=== PATIENT | female | born 1955 | race Caucasian/White ===

== ENCOUNTER 2025-04-05 13:04 | Emergency (ER) | payer OTHER ==
[~2025-04-05] VITALS: Ht 165.1 cm; Wt 95.3 kg
--- NOTE | 2025-04-05 13:11 | NUR ---
PAGED EKG OVER RADIO, STAT FOR CHEST PAIN
--- NOTE | 2025-04-05 13:17 | EKG ---
[facility] Test Date: 2025-04-05 Test Time: 13:13:49 Pat Name: JAVIER OSULLIVAN Department: ED Room: Gender: F [employer]: [id number] : 1955 Requested By: GENESIS BLANCA Order Number: [id number] Reading MD: Jaspreet Villa Measurements Intervals [place] Rate: 84 P: 44 [place]: 151 QRS: 13 QRSD: 122 T: 37 QT: 379 QTc: 448 Interpretive Statements Sinus rhythm Right bundle branch block Compared to ECG 04/21/2024 17:31:30 Atrial premature complex(es) no longer present Electronically Signed On 04-05-2025 19:45:53 CDT by Jaspreet Villa Please click the below link to view image of tracing.
[2025-04-05] MEDS: NITROGLYCERIN 0.4 MG SL TAB SL PRN (13:28)
[2025-04-05] MEDS: LACTATED RINGERS 1000ML 1,000 ML IV ONE (13:29)
[2025-04-05 13:33] LABS: BASOPHILS # (AUTO) 0.04 K/uL (0.00-0.20); BASOPHILS % (AUTO) 0.4 % (0.0-5.0); EOSINOPHILS # (AUTO) 0.11 K/uL (0.00-0.70); EOSINOPHILS % (AUTO) 1.1 % (0.0-8.0); IMMATURE GRANULOCYTE ABSOLUTE 0.04 K/uL (0-1); LYMPHOCYTES # (AUTO) 2.1 K/uL (1.0-4.8); LYMPHOCYTES % (AUTO) 21.4 % (21.0-51.0); MEAN CORPUSCULAR HEMOGLOBIN 31.3 pg (27.0-33.0); MEAN CORPUSCULAR HGB CONC 33.6 g/dL (32.0-36.0); MEAN CORPUSCULAR VOLUME 93.3 fL (79-99); MONOCYTES # (AUTO) 0.7 K/uL (0.1-1.0); MONOCYTES % (AUTO) 6.7 % (3.0-13.0); NEUTROPHILS # (AUTO) 6.8 K/uL (1.8-7.7); PLATELET COUNT (AUTO) 212 K/uL (130-400); RED BLOOD CELL COUNT(AUTO) 4.18 MIL/uL (4.00-5.50); RED CELL DISTRIBUTION WIDTH 12.3 % (11.0-15.5); WHITE BLOOD COUNT (AUTO) 9.7 K/uL (4.8-10.8)
--- NOTE | 2025-04-05 13:35 | ERN ---
General Chief Complaint: Chest Pain Stated Complaint: CHEST TIGHTNESS AN HOUR Time Seen by MD: 13:05 Source: patient History of Present Illness Initial Comments Patient is a 69-year-old female coming in to be evaluated for chest pressure. Per patient she states that she has been having chest pressure since 12:00 p.m.. Allergies: Coded Allergies: Cephalosporins (Unverified Allergy, Unknown, ITCHING, 04/21/24) Sulfa (Sulfonamide Antibiotics) (Unverified Allergy, Unknown, HIVES, 04/21/24) Past Medical History Past Medical History: High Cholesterol Medical History Other: CHRONIC BACK PAIN Past Surgical History: Other Surgical History Other: BACK SX ROS Dictation CONSTITUTIONAL: No chills, no fever, no weakness, no diaphoresis, no malaise. HEAD/FACE: No signs of trauma. EENT: No eye pain, no blurred vision, no tearing, no double vision, no ear pain, no ear discharge, no nose pain, no nasal congestion, no throat pain, no throat swelling, no mouth pain. RESPIRATORY: No cough, no orthopnea, no SOB, no stridor, no wheezing. CARDIOVASCULAR: No chest pain, no edema, no palpitations, no syncope. GASTROINTESTINAL/ABDOMINAL: No abdominal pain, no constipation, no diarrhea, no nausea, no vomiting. GENITOURINARY: No abnormal discharge, no dysuria, no frequent urination, no hematuria. No complaints of pain in the genitals. MUSCULOSKELETAL: No back pain, no gout, no joint pain, no joint swelling, no muscle pain, no muscle stiffness, no neck pain. INTEGUMENTARY: No change in color, no change in hair/nails, no dryness, no lesion, no lumps, no rash. NEUROLOGICAL/PSYCH: No anxiety, not depressed, no emotional problem, no headache, no numbness, no pre-existing deficit, no history of seizures, no tremors, no weakness. HEMATOLOGIC/LYMPHATIC: Not anemic, no history of blood clots, no apparent bleeding, no bruising, glands not swollen. All Systems Negative, Except as Noted. Physical Exam Physical Exam Dictation VITAL SIGNS: Reviewed. GENERAL APPEARANCE: Alert, oriented x3, no acute distress, obese. HEAD AND FACE: Non-traumatic. EYES: PERRL, pink conjunctivas, eyelid no trauma, anterior chamber clear. EARS: Pinnas intact and no signs of trauma or erythema. Ear canals clear and no discharge. TMs no erythema. NOSE: No discharge, no bleeding. OROPHARYNX: Mouth normal, teeth no caries, tongue pink. Pharynx clear, no laura thema. Tonsils no exudates, no abscesses noted. Mucous membrane moist. NECK: Supple, non-tender, no thyromegaly, no masses, no JVD, no bruits. BREAST: Deferred. CHEST: No tenderness, no crepitus, no paradoxical movement, no retractions. LUNGS: Clear, well-ventilated, symmetric, no rales, no wheezing, no rhonchi, no stridor, good breath sounds bilaterally. HEART: Regular rate, regular rhythm, no murmur, no gallops. VASCULAR: No peripheral edema. ABDOMEN: Soft, positive bowel sounds, nondistended, no guarding, nontender, no rebound, no masses no hepatomegaly, no splenomegaly, no Soriano's sign, no hernias. RECTAL: Deferred. GENITAL: Deferred. NEUROLOGICAL: Normal speech, gross motor function intact, gross sensory function intact. MUSCULOSKELETAL: Neck nontender, full range of motion, back nontender, full range of motion. EXTREMITIES: Nontender, full range of motion. SKIN: Color pink, dry, no turgor, no rash, no lacerations, no abrasions, no contusions. LYMPHATICS: Deferred. Results Laboratory and Microbiology Lab and Micro Result Laboratory Tests Test 04/05/25 13:29 04/05/25 14:05 04/05/25 14:57 White Blood Count 9.7 K/uL (4.8-10.8) Red Blood Count 4.18 MIL/uL (4.00-5.50) Hemoglobin 13.1 g/dL (12.0-16.0) Hematocrit 39.0 % (36-48) Mean Corpuscular Volume 93.3 fL (79-99) Mean Corpuscular Hemoglobin 31.3 pg (27.0-33.0) Mean Corpuscular Hemoglobin Concent 33.6 g/dL (32.0-36.0) Red Cell Distribution Width 12.3 % (11.0-15.5) Platelet Count 212 K/uL (130-400) Mean Platelet Volume 10.9 fL (7.5-10.5) H Immature Granulocyte % (Auto) 0.4 % (0-1) Neutrophils (%) (Auto) 70.0 % (40.0-77.0) Lymphocytes (%) (Auto) 21.4 % (21.0-51.0) Monocytes (%) (Auto) 6.7 % (3.0-13.0) Eosinophils (%) (Auto) 1.1 % (0.0-8.0) Basophils (%) (Auto) 0.4 % (0.0-5.0) Neutrophils # (Auto) 6.8 K/uL (1.8-7.7) Lymphocytes # (Auto) 2.1 K/uL (1.0-4.8) Monocytes # (Auto) 0.7 K/uL (0.1-1.0) Eosinophils # (Auto) 0.11 K/uL (0.00-0.70) Basophils # (Auto) 0.04 K/uL (0.00-0.20) Absolute Immature Granulocyte (auto 0.04 K/uL (0-1) Nucleated Red Blood Cells 0.0 % (0.0-0.19) Sodium Level 142 mmol/L (136-145) Potassium Level 3.8 mmol/L (3.5-5.1) Chloride Level 106 mmol/L (101-111) Carbon Dioxide Level 32 mmol/L (21-32) Blood Urea Nitrogen 15 mg/dL (7-18) Creatinine 0.8 mg/dL (0.5-1.0) Glomerular Filtration Rate Calc 81 mL/min (>90) Random Glucose 100 mg/dL (70-105) Total Calcium 9.2 mg/dL (8.5-10.1) Troponin I High Sensitivity 6 ng/L (4-50) 5 ng/L (4-50) B-Type Natriuretic Peptide 129 pg/mL (0-100) H Urine Color YELLOW (YELLOW) Urine Appearance CLEAR (CLEAR) Urine pH 8.0 (5.0-8.0) Urine Specific [place] 1.015 (1.001-1.031) Urine Protein NEGATIVE mg/dL (NEGATIVE) Urine Glucose (UA) NEGATIVE mg/dL (NEGATIVE) Urine Ketones NEGATIVE mg/dL (NEGATIVE) Urine Occult Blood +- (TRACE) (NEGATIVE) H Urine Nitrate NEGATIVE (NEGATIVE) Urine Bilirubin NEGATIVE mg/dL (NEGATIVE) Urine Urobilinogen 0.2 mg/dL (0.2-1.0) Urine Leukocyte Esterase 250 Lon/uL (NEGATIVE) H Urine RBC 11-25 /HPF (0-1) H Urine WBC 6-10 /HPF (0-1) H Urine Squamous Epithelial Cells RARE /HPF (0-2) Urine Bacteria RARE /HPF (None Seen) Labs Reviewed?: Yes EKG/XRAY/US/CT/MRI EKG Comment 04/30/2025 time 1:13 p.m. Ventricular rate 84 Sinus rhythm [place] [address] wave elevation or depression X-RAY Comment [facility] [address] [place] [address] IMAGING REPORT Signed PATIENT: JAVIER OSULLIVAN MR#: [id number] : 1955 SEX: F AGE: 69 LOCATION: [facility]H ORDER [id number] STATUS: [facility] ER REPORT#: [id number] SERVICE 1312 REASON: cp ORDERING PHYSICIAN: GENESIS BLANCA MD PROCEDURE: CXR1VW - CHEST 1VW CHEST 1VW REASON: cp COMPARISON: 09/05/2005 FINDINGS: Single view of the chest was obtained. Lungs are clear. Heart size is normal. There is no pulmonary vascular congestion. Mediastinum and bony thorax appear unremarkable. IMPRESSION: 1. Normal single view chest x-ray. DICTATED BY: DONTAE LUNA MD DATE: 04/05/251424 ELECTRONICALLY SIGNED BY: DONTAE LUNA MD DATE: 04/05/25 142 [facility] MDM: Differential diagnosis:gerd, NSTEMI, STEMI, gastritis, Rationale: Tests considered and ordered secondary to shared decision making include: Previous outside records reviewed: Old ER visits. Risk of complication and/or morbidity or mortality of patient management: None Patient is a 69-year-old female coming in complaining of chest pressure cardiac workup negative no acute findings were present. Patient was positive for urinary tract infection received IV antibiotics patient was given nitroglycerin and states the pain did not improve. Patient received IV Protonix GI cocktail states her symptoms improved. I did advised her appropriate follow up with PCP and/or client care manager for stress test as outpatient. Patient will be taking an aspirin daily basis as well as Protonix for gastritis. ED Course Orders Procedure Category Date Status Time Cbc With Differential LAB 04/05/25 Complete 13:12 B-Type Natriuretic LAB 04/05/25 Complete Peptide 13:12 Chest 1vw RAD 04/05/25 Resulted 13:12 12 Lead Ekg Tracing- EKG 04/05/25 Complete Technical 13:12 Lactated Ringers PHA 04/05/25 Complete 1000ml (Lactated 13:30 Nitroglycerin 0.4mg PHA 04/05/25 In Process Sl Tab (Nitrostat) 13:30 Troponin I High LAB 04/05/25 Complete Sensitivity 13:12 Urinalysis Profile LAB 04/05/25 Complete 13:12 Basic Metabolic Panel LAB 04/05/25 Complete 13:12 Culture Urine RENETTA 04/05/25 In Process 14:16 Troponin I High LAB 04/05/25 Complete Sensitivity 14:37 Levofloxacin 500 PHA 04/05/25 In Process Mg/D5w 100 Ml 15:30 Pantoprazole 40mg Inj PHA 04/05/25 Complete (Protonix 40mg Inj 15:30 Lidocaine Hcl 2% PHA 04/05/25 Complete Viscous (Lidocaine Hcl 15:30 Mag/Alum/Simeth 30ml PHA 04/05/25 Complete (Maalox Plus 30ml) 15:30 Current Medications Medications (Trade) Dose Ordered Sig/Kylie Route PRN Reason Start Time Stop Time Status Last Admin Dose Admin Al Hydroxide/Mg Hydroxide (MAALox PLUS 30ML) 30 ml ONCE ONCE PO 04/05/25 15:30 04/05/25 15:32 DC 04/05/25 15:37 Lactated Ringer's 1,000 ml @ 0 mls/hr ONCE ONCE IV 04/05/25 13:30 04/05/25 13:31 DC 04/05/25 13:29 Levofloxacin/ Dextrose 100 ml @ 100 mls/hr Q24H IV 04/05/25 15:30 04/15/25 15:29 04/05/25 15:19 Lidocaine HCl (Lidocaine HCl 2% Viscous) 10 ml ONCE ONCE PO 04/05/25 15:30 04/05/25 15:32 DC 04/05/25 15:37 Nitroglycerin (Nitrostat) 0.4 mg Q5M PRN SL CHEST PAIN 04/05/25 13:30 04/05/25 13:28 Pantoprazole Sodium (PROTonix 40MG INJ) 40 mg ONCE ONCE IVP 04/05/25 15:30 04/05/25 15:32 DC 04/05/25 15:37 Vital Signs Date Time Temp Pulse Resp B/P (MAP) Pulse Ox O2 Delivery O2 Flow Rate FiO2 04/05/25 14:36 99.1 79 11 131/75 95 Nasal Cannula* 2 28 04/05/25 13:51 99.1 79 16 141/79 97 Nasal Cannula* 2 28 04/05/25 13:12 98.1 85 18 132/83 99 Room Air 0 DX & DISP Disposition: Discharge Departure Impression: Primary Impression: UTI (urinary tract infection) Additional Impressions: Gastritis, Chronic back pain Condition: Stable Scripts Aspirin (Aspirin) 81 Mg Tab.chew 1 TAB PO DAILY for 30 Days, #30 TAB 0 Refills Prov: GENESIS BLANCA MD 04/05/25 Levofloxacin (Levaquin 750Mg Tabs) 750 Mg Tablet 1 TAB PO DAILY for 5 Days, #5 TAB 0 Refills Prov: GENESIS BLANCA MD 04/05/25 Pantoprazole Sodium (Protonix) 40 Mg Ectab 1 TAB PO DAILY for 30 Days, #30 TAB 0 Refills Prov: GENESIS BLANCA MD 04/05/25 Additional Instructions: You have been reviewed in the emergency department at [facility] after presenting with chest pain. After considering your history, your risk factors, your EKG and your blood test troponins, have been found to be at very low risk less than (1 in 100) of having a major adverse cardiac event (like heart attack) in the near future. In the " low risk" group, the risks of doing further tests and treatment as the inpatient outweighs the benefits. In many patients in the low risk group for the test of any sort or unnecessary, however he should discuss this further with his general practitioner who will understand the medical and personal backgrounds better. Because we have never declared you" no risk" we would suggest. 1 returning for medical review if you have further episodes of chest pain/arm pain or other concerning symptoms like dizziness, collapse, palpitations or shortness of breath. 2. Following up with your local doctor who will consider the need for further testing and will also ensure that any modifiable risk factors you may have for heart disease are optimally managed. Patient will be discharged in stable condition at the moment discharge patient states , no chest pain Referrals: SELF,REFERRAL (PCP) WARNER HAIDER MD, LUIS A MD Time of Disposition: 16:01 GENESIS BLANCA MD Apr 05, 2025 13:35
[2025-04-05 13:42] LABS: CREATININE 0.8 mg/dL (0.5-1.0); POTASSIUM 3.8 mmol/L (3.5-5.1)
[2025-04-05 13:50] LABS: B-TYPE NATRIURETIC PEPTIDE 129 pg/mL (0-100)
[2025-04-05 14:14] LABS: APPEARANCE,URINE CLEAR (CLEAR); BILIRUBIN,URINE NEGATIVE (NEGATIVE); COLOR,URINE YELLOW (YELLOW); GLUCOSE, URINE (UA) NEGATIVE (NEGATIVE); KETONES,URINE NEGATIVE (NEGATIVE); LEUKOCYTE ESTERASE ,URINE 250 Leu/uL (NEGATIVE); NITRATE,URINE NEGATIVE (NEGATIVE); PROTEIN,URINE NEGATIVE (NEGATIVE); UROBILINOGEN,URINE 0.2 mg/dL (0.2-1.0)
[2025-04-05 14:16] LABS: ADD UA MICROSCOPIC YES
[2025-04-05 14:20] LABS: BACTERIA,URINE RARE /HPF (None Seen); SQUAMOUS EPITHELIAL CELL,UR RARE /HPF (0-2)
--- NOTE | 2025-04-05 14:27 | HMCIMG ---
CHEST 1VW REASON: cp COMPARISON: 09/05/2005 FINDINGS: Single view of the chest was obtained. Lungs are clear. Heart size is normal. There is no pulmonary vascular congestion. Mediastinum and bony thorax appear unremarkable. IMPRESSION: 1. Normal single view chest x-ray.
[2025-04-05] MEDS: levoFLOXacin 500 MG/D5W 100 ML 100 ML IV SCH (15:19)
[2025-04-05] MEDS: LIDOCAINE HCL 2% VISCOUS 15 ML UDCUP PO ONE (15:37)
[2025-04-05] MEDS: MAG/ALUM/SIMETH 30 ML UDCUP PO ONE (15:37)
[2025-04-05] MEDS: PANTOPrazole 40 MG/VIAL IVP ONE (15:37)
[2025-04-05 16:02] VITALS: BP 129/77; PULSE 76; RESP 15; TEMP 99.1; O2SAT 96
[2025-04-05] MEDS ORDERED: ASPI-1197 PO (16:03)
[2025-04-05] MEDS ORDERED: LEVO750T68 PO (16:03)
[2025-04-05] MEDS ORDERED: PANT40TA55 PO (16:03)
--- NOTE | 2025-04-05 16:06 | NUR ---
PT AAOX4 STABLE NO DISTRESS, VITALS WNL STATES . DR BLANCA AT BEDSIDE, PT STATES CHEST PAIN IS MUCH BETTER SINCE WHEN SHE CAME IN. PT GIVEN INSTRUCTIONS FOR HOME VERBALZIED UNDERSTANDING. IV REMOVED CATHETER INTACT. PT TAKEN IN W/C TO CAR DRIVEN HOME BY SPOUSE.
== END 2025-04-05 17:07 | disposition home or self-care (01) ==
LOC: EDH 13:04
DX: N39.0 Urinary tract infection, site not specified (principal); K29.70 Gastritis, unspecified, without bleeding; G89.29 Other chronic pain; M54.50 Low back pain, unspecified; E78.00 Pure hypercholesterolemia, unspecified; Z88.1 Allergy status to other antibiotic agents; Z88.2 Allergy status to sulfonamides
CPT/HCPCS: 99285; 96365; 96361; 71045; 96375; 84484 ×2; 80048; 83880; 85025; 87086; 81001; 36415; 93005; J1956; J2470